=== PATIENT | female | born 1995 | race Caucasian/White ===

== ENCOUNTER 2020-07-03 14:24 | Outpatient (CLI) | payer OTHER ==
--- NOTE | 2020-07-03 15:22 | ULT ---
Obstetric sonogram HISTORY: Second trimester gestation. evaluation. FINDINGS: Single intrauterine gestation in cephalic presentation. Cervix is closed and 3.1 cm. Grade 1 placenta is anterior with a 1.1 cm placental reyna. Amniotic fluid is within normal limits. No gross intracranial abnormalities are apparent. spine and kidneys are intact as visualized. Four-chamber heart shows motion at 122 bpm. Three-vessel cord shows a normal insertion. Measurements are as follows: Biparietal diameter 22 weeks 1 day Head circumference 21 weeks 6 days Abdominal circumference 21 weeks 5 days Femur length 21 weeks 1 day [place] 37 percentile. Estimated date of delivery based on today's sonogram 11/09/2020. IMPRESSION : Single viable intrauterine gestation. Estimated gestational age 21 weeks 5 days. No abnormalities are demonstrated
== END 2020-07-03 14:25 | disposition home or self-care (01) ==
LOC: BICULT 14:24
PROVIDERS: ATTEND Nurse Practitioner
DX: Z34.02 Encounter for supervision of normal first pregnancy, second trimester (principal); Z3A.21 21 weeks gestation of pregnancy
CPT/HCPCS: 76805